=== PATIENT | female | born 1985 | race Caucasian/White ===

== ENCOUNTER → 2016-11-02 | Outpatient (CLI) | payer BC ==
--- NOTE | 2016-11-02 08:45 | KCIC ---
Indication: Family history of thyroid carcinoma and elevated thyroid levels. The right lobe measures 4.2 x 1.7 x 1.7 cm and the left lobe measures 4.8 x 1.8 x 1.5 cm. The isthmus is 6 mm in thickness. Both lobes are heterogeneous and show increased vascularity but no discrete or dominant mass is identified. IMPRESSION: Heterogeneous and hypervascular thyroid. No discrete mass is detected. Electronically signed by: León Huerta MD (11/02/2016 8:42 AM) [id number]
== END | disposition home or self-care (01) ==
LOC: KCIC US 08:04
PROVIDERS: ATTEND Family Medicine
DX: R94.6 Abnormal results of thyroid function studies (principal); Z80.8 Family history of malignant neoplasm of other organs or systems
CPT/HCPCS: 76536